=== PATIENT | male | born 1990 | race Caucasian/White ===

== ENCOUNTER 2016-10-08 16:01 | Emergency (ER) | payer OTHER ==
[~2016-10-08] VITALS: Wt 190.0 kg
[2016-10-08] MEDS ORDERED: KETOROLAC 30 MG INJ IM STA (18:22)
[2016-10-08] MEDS ORDERED: CEPH-443 PO (18:25)
[2016-10-08] MEDS ORDERED: BACTDS PO (18:25)
[2016-10-08] MEDS ORDERED: IBUP-1542 PO (18:25)
--- NOTE | 2016-10-08 18:29 | ERD ---
ER Documentation Chief Complaint Date/Time DATE: 10/08/16 TIME: 18:27 Chief Complaint LEFT FOOT PAIN AND MILD SWELLING WITH NO TRAUMA. NO DEFORMITY NOTED HPI 26-year-old man presents with left foot pain and recent swelling mostly to the dorsal aspect of the left foot. Patient denies history of diabetes although does wear tight ill fitting shoes and has morbid obesity. He denies any direct injury or trauma to the foot or ankle, no difficulty ambulating, no fevers or chills, no chest pain or shortness of breath. ROS All systems reviewed and are negative except as per history of present illness. Medications Home Meds Active Scripts Ibuprofen* (Ibuprofen*) 600 Mg Tablet, 600 MG PO Q8 for PAIN AND/OR INFLAMMATION , #30 TAB Prov:SINGH LEE MD 10/08/16 Sulfamethoxazole-Trimethoprim* (Bactrim* DS) 800-160 Mg Tab, 1 TAB PO BID for 7 Days, TAB Prov:SINGH LEE MD 10/08/16 Cephalexin* (Keflex*) 500 Mg Capsule, 500 MG PO QID for 7 Days, CAP Prov:SINGH LEE MD 10/08/16 Allergies Allergies: Coded Allergies: No Known Allergy (Unverified , 10/08/16) PMhx/Soc Obesity Medical and Surgical Hx: pt denies Medical Hx, pt denies Surgical Hx Physical Exam Vitals Vital Signs Date Time Temp Pulse Resp B/P Pulse Ox O2 Delivery O2 Flow Rate FiO2 10/08/16 16:10 98.0 81 21 140/91 97 Physical Exam GENERAL: Well-developed, well-nourished, well-hydrated, in no apparent distress , looks nontoxic in appearance HEENT: Moist mucous membranes, pink conjunctiva, no cervical spine tenderness or step-off deformities, no goiter, no jaundice or icterus, extraocular movements intact without pain. No submandibular induration, and no pharyngeal erythema NEURO: Alert and oriented 3, cranial nerves II through XII intact bilaterally, pupils equal round reactive to light, no focal deficits or facial asymmetry, sensation intact distally Strength 5/5 in upper and lower extremities bilaterally CARDIAC: Regular rate and rhythm, no murmurs rubs or gallops LUNGS: Clear bilaterally no wheezing crackles or stridor ABDOMEN: Soft nontender, no guarding, no rigidity, no rebound, no psoas sign no obturator sign. Normoactive bowel sounds SKIN: There is a superficial pressure ulcer and surrounding skin erythema to the plantar medial aspect of the left big toe, no purulent discharge noted EXTREMITIES: No clubbing cyanosis or edema, calves are bilaterally symmetrical, no Homans sign, no popliteal cord sign. Distal pulses equal and bilateral PSYCH: Normal affect without agitation or irritability Results 24 hrs Current Medications Medications (Trade) Dose Ordered Sig/Doe Route PRN Reason Start Time Stop Time Status Last Admin Dose Admin Ketorolac Tromethamine (Toradol) 30 mg ONCE STAT IM 10/08/16 18:22 10/08/16 18:23 DC 10/08/16 18:34 Procedures/MDM Patient does have a left big toe pressure ulcer secondary to his poorly fitting shoes and obesity. I suspect early cellulitis of the foot which may be successfully managed with outpatient antibiotics, which I will prescribe. I did tell the patient to return if he has continued symptoms despite antibiotic use. I administered Toradol 30 mg intramuscular injection for pain control. Differential diagnoses considered, included but not limited to foreign body, ingrown toenail, sepsis, stroke, meningitis, encephalitis, pneumonia, appendicitis, cholecystitis, bowel obstruction, pyelonephritis, nephrolithiasis , cystitis, as well as metabolic, hematologic, and electrolyte abnormalities. As well as abscess, cellulitis, fractures, and dislocations. Patient feels much better at this time, and vital signs are normal, symptoms have improved. I did give strict instructions to return to the ED if symptoms continue or worsen, patient will otherwise follow-up with primary care physician. Patient understood instructions and agreed to plan. Departure Diagnosis: Primary Impression: Pressure ulcer Pressure ulcer stage: stage I Qualified Code: L89.91 - Pressure ulcer, stage I Condition: Good Patient Instructions: What Are Pressure Ulcers of the Foot?, Pressure Ulcer SINGH LEE MD Oct 08, 2016 18:29
== END 2016-10-08 18:41 | disposition home or self-care (01) ==
LOC: FTE 16:01
DX: L89.891 Pressure ulcer of other site, stage 1 (principal)
CPT/HCPCS: 96372; J1885

== ENCOUNTER 2017-06-05 15:00 | Inpatient (IN) | payer OTHER ==
[~2017-06-05] VITALS: Ht 190.5 cm; Wt 205.5 kg
[~2017-06-05 15:00] MED LIST: BACTDS PO; CEPH-443 PO; IBUP-1542 PO
[2017-06-05] MEDS ORDERED: SOD CHLORIDE 0.9% 1,000 ML IV STA (16:43)
[2017-06-05] MEDS ORDERED: VANCOMYCIN 1.25 GM in SOD CHLORIDE 0.9% 250 ML IVPB ONE (17:00)
[2017-06-05 17:17] LABS: ABNORMAL IP MESSAGE 1; HEMATOCRIT 43.7 % (42.0-52.0); MEAN CORPUSCULAR HEMOGLOBIN 24.6 pg (29.0-33.0); MEAN CORPUSCULAR VOLUME 76.9 fl (82.0-101.0); MEAN PLATELET VOLUME 13.2 fl (7.4-10.4); PLATELET COUNT 172 10^3/UL (140-415); POSITIVE DIFF @See below; RED BLOOD COUNT 5.68 10^6/ul (4.70-6.10); WHITE BLOOD COUNT 15.6 10^3/ul (4.8-10.8)
--- NOTE | 2017-06-05 17:22 | RADRPT ---
PROCEDURE: Right tibia and fibula series CLINICAL INDICATION: Right leg swelling and pain. TECHNIQUE: AP and lateral views of the right tibia and fibula were obtained. COMPARISON: None FINDINGS: No acute fracture or dislocations are seen. The osseous structures are well mineralized. Diffuse sof t tissue swelling is seen. IMPRESSION: Diffuse soft tissue swelling. RPTAT: HPNM Physician Mary Date Time Electronically viewed and signed by Jarrell Mark Physician on 06/05/2017 17:22 /
[2017-06-05 17:24] LABS: ADD UMIC YES; UR AMORPHOUS CRYSTAL FEW /HPF (NONE SEEN); UR ASCORBIC ACID 40 mg/dL (NEGATIVE); UR BILIRUBIN (Dip) NEGATIVE (NEGATIVE); UR BLOOD (Dip) NEGATIVE (NEGATIVE); UR CLARITY SLIGHTLY CLOUDY (CLEAR); UR COLOR AMBER (YELLOW); UR GLUCOSE (Dip) NEGATIVE (NEGATIVE); UR KETONES (Dip) NEGATIVE (NEGATIVE); UR LEUKOCYTE ESTERASE (Dip) TRACE Leu/ul (NEGATIVE); UR MUCUS MODERATE /HPF (NONE SEEN); UR NITRITE (Dip) NEGATIVE (NEGATIVE); UR RBC 0 /HPF (0-5); UR SPECIFIC GRAVITY (Dip) 1.025 (1.003-1.030); UR SQUAMOUS EPITHELIAL CELL FEW /HPF (FEW); UR TOTAL PROTEIN (Dip) 1+ mg/dl (NEGATIVE); UR UROBILINOGEN (Dip) 2+ mg/dL (NEGATIVE)
[2017-06-05 17:32] LABS: ALBUMIN 4.4 g/dl (3.3-4.9); ALBUMIN/GLOBULIN RATIO 1.1; BILIRUBIN,INDIRECT 1.7 mg/dl (0-1.1); BILIRUBIN,TOTAL 1.7 mg/dl (0.2-1.3); CALCIUM 8.9 mg/dl (8.4-10.2); CREATININE 0.92 mg/dl (0.61-1.24); TOTAL PROTEIN 8.4 g/dl (6.1-8.1)
--- NOTE | 2017-06-05 17:32 | RADRPT ---
PROCEDURE: US right lower extremity veins. CLINICAL INDICATION: Right leg pain and swelling. TECHNIQUE: Multiple longitudinal and transverse images of the right lower extremity veins were obt ained with choi scale and color Doppler imaging. The common femoral vein, femoral vein, and poplitea l vein were evaluated. 2D grayscale measurements with compression sonography, pulsed Doppler, color Doppler, and pulsed Doppler with augmentation. COMPARISON: No prior studies are available for comparison. FINDINGS: The right common femoral, femoral and popliteal veins are normally compressible throughout. Color f low demonstrates normal filling of the vessels. Normal waveforms are visualized and there is normal response to augmentation. IMPRESSION: 1. No evidence of deep vein thrombosis involving the right lower extremity. RPTAT: QQ .Renato Nicole MD, MD Date Time Electronically viewed and signed by .Renato Nicole MD, on 06/05/2017 17:31 .R/
--- NOTE | 2017-06-05 17:57 | ERA ---
ER Documentation Chief Complaint Date/Time DATE: 06/05/17 TIME: 17:57 Chief Complaint bite to rle with rash and itchiness HPI 26y/o male, h/o lower extremity venous stasis, presents to the ED c/o a 3 day h/ o increasing redness, pain and swelling to right lower leg. Symptoms began after scratching a possible bug bite. No chest pain, palpitations or shortness of breath. Subjective fevers. No chills. ROS All systems reviewed and are negative except as per history of present illness. Medications Home Meds Active Scripts Ibuprofen* (Ibuprofen*) 400 Mg Tablet, 400 MG PO Q6H Y for PAIN, #40 TAB Prov:JEREMY MONROY MD 06/09/17 Sulfamethoxazole/Trimethoprim* (Bactrim Ds* Tablet) 1 Each Tablet, 1 TAB PO BID for Celluliits , #16 TAB Prov:JEREMY MONROY MD 06/09/17 Discontinued Scripts Ibuprofen* (Ibuprofen*) 600 Mg Tablet, 600 MG PO Q8 for PAIN AND/OR INFLAMMATION , #30 TAB Prov:SINGH LEE MD 10/08/16 Sulfamethoxazole-Trimethoprim* (Bactrim* DS) 800-160 Mg Tab, 1 TAB PO BID for 7 Days, TAB Prov:SINGH LEE MD 10/08/16 Cephalexin* (Keflex*) 500 Mg Capsule, 500 MG PO QID for 7 Days, CAP Prov:SINGH LEE MD 10/08/16 Allergies Allergies: Coded Allergies: No Known Allergy (Unverified , 06/05/17) PMhx/Soc Reviwed in chart. As per HPI. Medical and Surgical Hx: pt denies Medical Hx History of Surgery: Yes (gall bladder surgery ) Anesthesia Reaction: No Hx Neurological Disorder: No Hx Respiratory Disorders: No Hx Cardiac Disorders: No Hx Psychiatric Problems: No Hx Miscellaneous Medical Probl: No Hx Alcohol Use: No Hx Substance Use: No Hx Tobacco Use: No Smoking Status: Never smoker Physical Exam Vitals Vital Signs Date Time Temp Pulse Resp B/P Pulse Ox O2 Delivery O2 Flow Rate FiO2 06/05/17 18:50 99.6 91 20 138/79 99 Room Air 06/05/17 15:24 100.2 118 20 175/95 98 Physical Exam Const: Alert, moderate distress Head: Atraumatic Eyes: Normal Conjunctiva ENT: Normal External Ears, Nose and Mouth. Neck: Full range of motion. Nontender. Resp: Clear to auscultation bilaterally Cardio: Regular rate and rhythm, no murmurs Abd: Soft, non tender, non distended. Normal bowel sounds. Obese. Skin: No petechiae or rashes Back: No midline or flank tenderness Ext: Right LE: Diffuse swelling, erythema, calor and induration from above the ankle to below the knee. Mild lymphangitic streaking. No crepitus. No inguinal lymphadenopathy or tenderness. Neur: Awake and alert Psych: Normal Mood and Affect Result Diagram: 06/08/179 06/08/17438 Results 24 hrs Laboratory Tests Test 06/05/17 16:50 White Blood Count 15.610^3/ul Red Blood Count 5.6810^6/ul Hemoglobin 14.0g/dl Hematocrit 43.7% Mean Corpuscular Volume 76.9fl Mean Corpuscular Hemoglobin 24.6pg Mean Corpuscular Hemoglobin Concent 32.0g/dl Red Cell Distribution Width 16.0% Platelet Count 00491^3/UL Mean Platelet Volume 13.2fl Nucleated Red Blood Cells % 0.0/100WBC Urine Color MARY Urine Clarity SLIGHTLY CLOUDY Urine pH 6.0 Urine Specific [place] 1.025 Urine Ketones NEGATIVEmg/dL Urine Nitrite NEGATIVEmg/dL Urine Bilirubin NEGATIVEmg/dL Urine Urobilinogen 2+mg/dL Urine Leukocyte Esterase TRACELeu/ul Urine Microscopic RBC 0/HPF Urine Microscopic WBC 5/HPF Urine Squamous Epithelial Cells FEW/HPF Urine Amorphous Crystals FEW/HPF Urine Mucus MODERATE/HPF Urine Hemoglobin NEGATIVEmg/dL Urine Glucose NEGATIVEmg/dL Urine Total Protein 1+mg/dl Sodium Level 141mmol/L Potassium Level 4.0mmol/L Chloride Level 102mmol/L Carbon Dioxide Level 30mmol/L Anion Gap 13 Blood Urea Nitrogen 10mg/dl Creatinine 0.92mg/dl Glucose Level 97mg/dl Lactic Acid Level 1.3mmol/L Calcium Level 8.9mg/dl Total Bilirubin 1.7mg/dl Direct Bilirubin 0.00mg/dl Indirect Bilirubin 1.7mg/dl Aspartate Amino Transf (AST/SGOT) 46IU/L Alanine Aminotransferase (ALT/SGPT) 99IU/L Alkaline Phosphatase 94IU/L Total Protein 8.4g/dl Albumin 4.4g/dl Globulin 4.00g/dl Albumin/Globulin Ratio 1.10 Lipase 53U/L Current Medications Medications (Trade) Dose Ordered Sig/Doe Route PRN Reason Start Time Stop Time Status Last Admin Dose Admin Vancomycin HCl 1.25 gm/Sodium Chloride 250 ml @ 83.333 mls/ hr ONCE ONCE IVPB 06/05/17 17:00 06/05/17 19:59 DC 06/05/17 17:31 Sodium Chloride (NS) 1,000 ml @ 1,000 mls/hr Q1H STAT IV 06/05/17 16:43 06/05/17 17:42 DC 06/05/17 17:00 PROCEDURE: Right tibia and fibula series CLINICAL INDICATION: Right leg swelling and pain. TECHNIQUE: AP and lateral views of the right tibia and fibula were obtained. COMPARISON: None FINDINGS: No acute fracture or dislocations are seen. The osseous structures are well mineralized. Diffuse soft tissue swelling is seen. IMPRESSION: Diffuse soft tissue swelling. RPTAT: HPNM Physician Mary Date Time Electronically viewed and signed by Physician Mary on 06/05/2017 17 :22 / PROCEDURE: US right lower extremity veins. CLINICAL INDICATION: Right leg pain and swelling. TECHNIQUE: Multiple longitudinal and transverse images of the right lower extremity veins were obtained with choi scale and color Doppler imaging. The common femoral vein, femoral vein, and popliteal vein were evaluated. 2D grayscale measurements with compression sonography, pulsed Doppler, color Doppler, and pulsed Doppler with augmentation. COMPARISON: No prior studies are available for comparison. FINDINGS: The right common femoral, femoral and popliteal veins are normally compressible throughout. Color flow demonstrates normal filling of the vessels. Normal waveforms are visualized and there is normal response to augmentation. IMPRESSION: 1. No evidence of deep vein thrombosis involving the right lower extremity. RPTAT: QQ .Renato Nicole MD, MD Date Time Electronically viewed and signed by .Renato Nicole MD, MD on 06/05/2017 17:31 .R/ Procedures/MDM DOCUMENTS REVIEWED: ED nurse, prior records. MEDICAL DECISION MAKINy/o male, h/o lower extremity venous stasis, ambulatory to the ED c/o a 3 day h/o increasing redness, pain and swelling to right lower leg. Cellulitis left lower extremity. Ascending lymphangitis but no necrotizing fasciitis. Ultrasound for DVT negative. Fever and leukocytosis consistent with SIRS. IV Vancomycin initiated. Admit to med/surg. Counseled patient and family regarding diagnosis, diagnostic results and plan for admission. CALLS/CONSULTS: Time 18:10, Dr. Bruce, Recommends admission to med/surg. PATIENT CARE TRANSITIONED: Time: 19:15, Dr. Bruce. Departure Diagnosis: Primary Impression: Cellulitis of right lower extremity Additional Impression: Ascending lymphangitis Condition: Serious MARGOTH FITZGERALD MD Jun 05, 2017 17:57
[2017-06-05] MEDS ORDERED: VANCOMYCIN IV PER PHARMACY XX SCH (20:30)
[2017-06-05] MEDS ORDERED: ONDANSETRON 4 MG INJ IV PRN (20:30)
[2017-06-05] MEDS ORDERED: NACL 0.9% 3 ML SYG IV SCH (20:30)
[2017-06-05] MEDS ORDERED: ACETAMINOPHEN 325 MG TAB PO PRN (20:30)
[2017-06-05] MEDS: HYDROCODONE/APAP (5/325) TAB PO PRN (21:57)
[2017-06-05] MEDS: FAMOTIDINE 20 MG TAB PO SCH (22:00)
[2017-06-05 22:05] VITALS: PULSE 91; TEMP 98.9
[2017-06-05] MEDS ORDERED: VANCOMYCIN 2 GM in SOD CHLORIDE 0.9% 500 ML IVPB SCH (23:30)
[2017-06-05 23:50] VITALS: BP 122/68; RESP 20
[2017-06-06 00:07] VITALS: Ht 190.5 cm; Wt 205.5 kg
[2017-06-06 02:15] VITALS: BP 129/69; RESP 20
[2017-06-06 05:19] LABS: ABNORMAL IP MESSAGE 1; BASOPHIL # 0.1 10^3/ul (0.0-0.1); BASOPHILS % 0.6 % (0.0-2.0); EOSINOPHILS # 0.3 10^3/ul (0.0-0.5); EOSINOPHILS % 2.3 % (0.0-7.0); HEMATOCRIT 38.2 % (42.0-52.0); HEMOGLOBIN 11.8 g/dl (14.0-18.0); LYMPHOCYTES # 2.8 10^3/ul (0.8-2.9); LYMPHOCYTES % 23.4 % (15.0-51.0); MEAN CORPUSCULAR HEMOGLOBIN 23.7 pg (29.0-33.0); MEAN CORPUSCULAR HGB CONC 30.9 g/dl (32.0-37.0); MEAN CORPUSCULAR VOLUME 76.7 fl (82.0-101.0); MEAN PLATELET VOLUME 13.2 fl (7.4-10.4); MONOCYTES % 16.3 % (0.0-11.0); NEUTROPHIL # 6.9 10^3/ul (1.6-7.5); NEUTROPHILS % 57.1 % (39.0-77.0); PLATELET COUNT 137 10^3/UL (140-415); POSITIVE DIFF @See below; RED BLOOD COUNT 4.98 10^6/ul (4.70-6.10); RED CELL DISTRIBUTION WIDTH 16.6 % (11.5-14.5); WHITE BLOOD COUNT 12.2 10^3/ul (4.8-10.8)
--- NOTE | 2017-06-06 05:45 | HP ---
Date/Time of Note Date/Time of Note DATE: 06/06/17 TIME: 05:38 Assessment/Plan VTE Prophylaxis VTE Prophylaxis Intervention: LMWH Lines/Catheters IV [facility] Saline Lock Urinary Cath still in place: No Assessment/Plan Chief Complaint/Hosp Course This is a 18 year male being admitted to the [facility] floor for: #1 right lower extremity cellulitis: Patient does have a abrasion noted on the posterior calf which he states was from itching this likely could be the entry point for his cellulitis. Patient also is a morbidly obese male which also is a risk factor in itself. At the current time he was started on vancomycin in the ED will continue vancomycin. Will provide [place] for pain control. #2 morbid obesity: We will check a hemoglobin A1c, TSH and lipid panel, will encourage weight loss. #4 DVT and GI prophylaxis: Lovenox, acid gabriel Further treatment strategy as per the clinical course Problems: HPI/ROS Admit Date/Time Admit Date/Time Jun 05, 2017 at 20:18 Hx of Present Illness Chief complaint: Right leg pain, rash This is a 26-year-old male coming into the ED complaining of right lower extremity calf pain and rash. Patient states he started noticing a rash of the back side of his leg below the level of the knee on Saturday. He states that it was painful and warm to touch. He denies any fevers. Denies any recent travel. He does state that he was scratching the area because it was itchy. He was not taking any medications for this Allergies: NKDA Medications: None ROS Const: Negative for fever, chills, weight gain or weight loss, fatigue, or diaphoresis Eyes : No pain discharge or redness or change in visual acuity ENT: No pain, sore throat, congestion, congestion, dysphagia or discharge Respiratory: No shortness of breath, cough, sputum, wheezing, or pleuritic pain Cardiovascular: No chest pain, palpitation, PND, or edema GI : no change in appetite, abdominal pain, nausea, vomiting, diarrhea, constipation, or change in the color his stool Genitourinary: No dysuria, hematuria, flank pain , discharge or CVA tenderness Musculoskeletal: As per HPI Skin: As per HPI Neuro: No headache, dizziness, syncope, seizure, focal weakness Endocrine: No polyuria, polydipsia, temperature intolerance Psych: No hallucination, depression, anxiety or suicidal ideation PMH/Family/Social Past Medical History Medical History: no pertinent history Past Surgical History Gallstone removal, deviated septum surgery Family History Significant Family History: no pertinent family hx Social History Alcohol Use: occasionally Smoking Status: Never smoker Drug Use: none Exam/Review of Systems Vital Signs Vitals Vital Signs Date Time Temp Pulse Resp B/P Pulse Ox O2 Delivery O2 Flow Rate FiO2 06/06/17 02:15 99.0 101 20 129/69 93 06/05/17 22:05 Room Air Exam Exam General: This is a morbidly obese male sitting in bed in mild distress from pain HEENT: Atraumatic, normocephalic. The pupils are equal, round and reactive. Extraocular motor are intact Neck: Supple with full range of motion. No rigidity or meningismus Chest: Nontender Lungs: Clear to auscultation bilaterally no crackles rales or wheezing Heart: Normal S1-S2, Regular rhythm and rate. No murmur, S3, or S4 Abdomen: Soft , nontender, nondistended , bowel sounds are present. No guarding no rebound tenderness , No masses or organomegaly. No costovertebral temporal angle mass Extremities: Negative Homans sign, tenderness to palpation along the posterior right lower extremity, warmth and erythema noted Neurologic: Normal mental status, speech normal, cranial nerves II through XII are intact, motor and sensory are intact, no focal weakness Skin: Right lower extremity: At the area of the calf down to the Achilles redness and warmth noted, area of abrasion at the posterior calf likely from scratching Additional Comments PROCEDURE: Right tibia and fibula series CLINICAL INDICATION: Right leg swelling and pain. TECHNIQUE: AP and lateral views of the right tibia and fibula were obtained. COMPARISON: None FINDINGS: No acute fracture or dislocations are seen. The osseous structures are well mineralized. Diffuse soft tissue swelling is seen. IMPRESSION: Diffuse soft tissue swelling. RPTAT: HPNM Physician Mary Date Time Electronically viewed and signed by Jarrell Mark Physician on 06/05/2017 17 :22 / CC: DOMINIC SIN PA-C PROCEDURE: US right lower extremity veins. CLINICAL INDICATION: Right leg pain and swelling. TECHNIQUE: Multiple longitudinal and transverse images of the right lower extremity veins were obtained with choi scale and color Doppler imaging. The common femoral vein, femoral vein, and popliteal vein were evaluated. 2D grayscale measurements with compression sonography, pulsed Doppler, color Doppler, and pulsed Doppler with augmentation. COMPARISON: No prior studies are available for comparison. FINDINGS: The right common femoral, femoral and popliteal veins are normally compressible throughout. Color flow demonstrates normal filling of the vessels. Normal waveforms are visualized and there is normal response to augmentation. IMPRESSION: 1. No evidence of deep vein thrombosis involving the right lower extremity. RPTAT: QQ .Renato Nicole MD, MD Date Time Electronically viewed and signed by .Renato Nicole MD, on 06/05/2017 17:31 .R/ CC: DOMINIC SIN PA-C Labs Result Diagram: 06/06/17 0421 06/05/17 1650 Medications Medications Current Medications Ondansetron HCl (Zofran Inj) 4 mg Q6H PRN IV NAUSEA AND/OR VOMITING; Start 06/05/17 at 20:30 Acetaminophen (Tylenol Tab) 650 mg Q6H PRN PO PAIN LEVEL 1-3 OR FEVER; Start 06/05/17 at 20:30 Acetaminophen/ Hydrocodone Bitart ([place] (5/325)) 2 tab Q6H PRN PO SEVERE PAIN LEVEL 7-10 Last administered on 06/05/17 21:57; Admin Dose 2 TAB; Start at 20:30 Famotidine (Pepcid) 20 mg Q12 PO Last administered on 06/05/17 22:00; Admin Dose 20 MG; Start 06/05/17 at 21:00 Enoxaparin Sodium 40 mg 40 mg DAILY SC ; Start 06/06/17 at 09:00 Vancomycin HCl/ Sodium Chloride (Vancocin/NS) 500 ml @ 125 mls/hr Q8H IVPB ; Start 06/06/17 at 10:00 SUSIE BUSTILLO Jun 06, 2017 05:45
[2017-06-06 05:52] LABS: ALBUMIN 3.6 g/dl (3.3-4.9); ALBUMIN/GLOBULIN RATIO 0.97; BILIRUBIN,INDIRECT 1.5 mg/dl (0-1.1); BILIRUBIN,TOTAL 1.5 mg/dl (0.2-1.3); CHOL/HDL RATIO 4.3 RATIO; CREATININE 0.81 mg/dl (0.61-1.24); POTASSIUM 3.4 mmol/L (3.5-5.1); TOTAL PROTEIN 7.3 g/dl (6.1-8.1)
[2017-06-06 06:59] LABS: THYROID STIMULATING HORMONE 3.14 MIU/L (0.465-4.680)
[2017-06-06 07:31] VITALS: BP 121/69; RESP 19
[2017-06-06] MEDS: FAMOTIDINE 20 MG TAB PO SCH ×2 (08:42→21:04)
[2017-06-06] MEDS: ENOXAPARIN 40 MG/0.4 ML SYG SC SCH (08:54)
[2017-06-06] MEDS: VANCOMYCIN 2 GM in SOD CHLORIDE 0.9% 500 ML IVPB SCH ×2 (10:12→17:25)
--- NOTE | 2017-06-06 10:53 | PN ---
Date/Time of Note Date/Time of Note DATE: 06/06/17 TIME: 10:53 Assessment/Plan VTE Prophylaxis VTE Prophylaxis Intervention: LMWH Lines/Catheters IV [facility]from [facility] Saline Lock Urinary Cath still in place: No Assessment/Plan Chief Complaint/Hosp Course This is a 26-year-old morbidly obese male who presented to the emergency room for evaluation of right lower extremity swelling, pain, redness which started off with a rash which patient thinks possibly from bug bitex 4 days. 1. Right lower extremity cellulitis. Negative for DVT. -Continue IV antibiotics, elevation of affected extremity. ID consult will be also requested. -Follow up with blood cultures. -Also obtain a soft tissue ultrasound to rule out any possible abscess. 2. Systemic inflammatory response syndrome secondary to #1. -Treatment as above. 3. Mild thrombocytopenia, stable. -Monitor 4. Anemia, likely dilutional vs others. -H&H stable. Will monitor. -Add iron panel and treat accordingly. 5. Hyperbilirubinemia/transaminase elevation. This could be likely fatty infiltration. Patient asymptomatic. -Obtain liver ultrasound. 6. Mild hypokalemia. -Replete and monitor. Obtain magnesium level. DVT and GI prophylaxis: Lovenox, acid gabriel Plan: Continue current medical management. Follow-up with ID recommendations and follow-up cultures. Patient was seen in collaboration with . Problems: Subjective 24 Hr Interval Summary Free Text/Dictation Patient with low-grade fevers overnight. Continues to have pain, warmth, swelling, tenderness and redness on right lower extremities. Exam/Review of Systems Vital Signs Vitals Vital Signs Date Time Temp Pulse Resp B/P Pulse Ox O2 Delivery O2 Flow Rate FiO2 06/06/17 07:31 98.0 97 19 121/69 98 06/05/17 22:05 Room Air Intake and Output 06/05/17 06/05/17 06/06/17 15:00 23:00 07:00 Intake Total 280 ml Balance 280 ml Exam General: Well developed,adequately built, not in any acute distress . HEENT: Normocephalic, Atraumatic, No laceration or hematoma; Eyes: PEERL, Conjunctiva clear, Anicteric sclera Neck: Supple without any lymphadenopathy, nontender, no JVD, no carotid bruits, trachea midline, no thyromegaly Cardiac: S1, S2 auscultated, regular rhythm and rate, no mumurs or gallop Pulmonary: Normal respiratory effort. Chest clear to auscultation bilaterally, no adventitious breath sounds GI: Abdomen normal to inspection. Soft, non tender, non- distended, no masses, no rebound tenderness or guarding. Bowel sounds active on all four quadrants Genitourinary: Deferred Extremities: RLE with edema, redness, warm and induration. , Area of abrasion at the posterior calf likely from scratching. Pulses diminished on Rt DP/PT. Full ROM on all four extremities. No focal weakness appreciated. Neurologic: Alert to person, place, time, and situation. Affect appropriate, intact sensation. Skin: Clean,dry, and intact. No ecchymosis, no rashes, or lesions Results Result Diagram: 06/06/1742006/06/17420 Results 24 hrs Laboratory Tests Test 06/05/17 16:50 06/06/17 04:21 White Blood Count 15.6 H 12.2 #H Red Blood Count 5.68 4.98 Hemoglobin 14.0 11.8 L Hematocrit 43.7 38.2 L Mean Corpuscular Volume 76.9 L 76.7 L Mean Corpuscular Hemoglobin 24.6 L 23.7 L Mean Corpuscular Hemoglobin Concent 32.0 30.9 L Red Cell Distribution Width 16.0 H 16.6 H Platelet Count 172 137 #L Mean Platelet Volume 13.2 H 13.2 H Nucleated Red Blood Cells % 0.0 0.0 Urine Color MARY Urine Clarity SLIGHTLY CLOUDY A Urine pH 6.0 Urine Specific [place] 1.025 Urine Ketones NEGATIVE Urine Nitrite NEGATIVE Urine Bilirubin NEGATIVE Urine Urobilinogen 2+ H Urine Leukocyte Esterase TRACE A Urine Microscopic RBC 0 Urine Microscopic WBC 5 Urine Squamous Epithelial Cells FEW Urine Amorphous Crystals FEW A Urine Mucus MODERATE Urine Hemoglobin NEGATIVE Urine Glucose NEGATIVE Urine Total Protein 1+ H Sodium Level 141 140 Potassium Level 4.0 3.4 L Chloride Level 102 104 Carbon Dioxide Level 30 28 Anion Gap 13 11 Blood Urea Nitrogen 10 10 Creatinine 0.92 0.81 Glucose Level 97 109 Lactic Acid Level 1.3 Calcium Level 8.9 8.0 L Total Bilirubin 1.7 H 1.5 H Direct Bilirubin 0.00 0.00 Indirect Bilirubin 1.7 H 1.5 H Aspartate Amino Transf (AST/SGOT) 46 37 Alanine Aminotransferase (ALT/SGPT) 99 H 87 H Alkaline Phosphatase 94 80 Total Protein 8.4 H 7.3 # Albumin 4.4 3.6 Globulin 4.00 H 3.70 H Albumin/Globulin Ratio 1.10 0.97 Lipase 53 Neutrophils % 57.1 Lymphocytes % 23.4 Monocytes % 16.3 H Eosinophils % 2.3 Basophils % 0.6 Neutrophils # 6.9 Lymphocytes # 2.8 Monocytes # 2.0 H Eosinophils # 0.3 Basophils # 0.1 Nucleated Red Blood Cells # 0.0 Hemoglobin A1c 5.1 Magnesium Level 2.0 Triglycerides Level 129 Cholesterol Level 121 LDL Cholesterol, Calculated 67 HDL Cholesterol 28 L Cholesterol/HDL Ratio 4.3 Thyroid Stimulating Hormone (TSH) 3.140 Medications Medications Current Medications Ondansetron HCl (Zofran Inj) 4 mg Q6H PRN IV NAUSEA AND/OR VOMITING; Start 06/05/17 at 20:30 Acetaminophen (Tylenol Tab) 650 mg Q6H PRN PO PAIN LEVEL 1-3 OR FEVER Last administered on 06/06/17 08:42; Admin Dose 650 MG; Start 06/05/17 at 20:30 Acetaminophen/ Hydrocodone Bitart ([place] (5/325)) 2 tab Q6H PRN PO SEVERE PAIN LEVEL 7-10 Last administered on 06/05/17 21:57; Admin Dose 2 TAB; Start at 20:30 Famotidine (Pepcid) 20 mg Q12 PO Last administered on 06/06/17 08:42; Admin Dose 20 MG; Start 06/05/17 at 21:00 Enoxaparin Sodium 40 mg 40 mg DAILY SC Last administered on 06/06/17 08:54; Admin Dose 40 MG; Start 06/06/17 at 09:00 Vancomycin HCl/ Sodium Chloride (Vancocin/NS) 500 ml @ 125 mls/hr Q8H IVPB Last administered on 06/06/17 10:12; Admin Dose 125 MLS/HR; Start 06/06/17 at 10:00 KACI YANG NP Jun 06, 2017 10:53
--- NOTE | 2017-06-06 19:11 | CONS ---
DATE OF ADMISSION: 06/05/2017 DATE OF CONSULTATION: 06/06/2017 TYPE OF CONSULTATION: Infectious Disease. REASON FOR CONSULTATION: Antibiotic management. HISTORY OF PRESENT ILLNESS: Sourav Julian is a 26-year-old male who is being admitted for right lower ex tremity cellulitis. The patient complains of right lower extremity calf pain and rash. He states h e has been noticing a rash on the back of his leg below the level of the knee on Saturday, which is 4 days ago, was warm to the touch. Denies any fever, denies any recent travel and he was scratching t he area because it was pruritic. His other problems include morbid obesity on admission. PAST SURGICAL HISTORY: Status post gallstone removal, also deviated septum surgery. SOCIAL HISTORY: Does not smoke, drink or abuse drugs. ALLERGIES: NONE TO PENICILLIN, SULFA OR FOODS. MEDICATIONS: Per chart. REVIEW OF SYSTEMS: As per HPI. PHYSICAL EXAMINATION: GENERAL: The patient is a well-developed, well-nourished but morbidly obese male who is alert, resp onsive, in no acute distress. VITAL SIGNS: Stable. He is afebrile. SKIN: Without generalized rash. HEENT: Within normal limits. NECK: Supple. LYMPH NODES: None palpable. CHEST: Decreased breath sounds at the bases. HEART: Without murmur or gallop. ABDOMEN: Soft, nontender, without organosplenomegaly or masses. EXTREMITIES: Without cyanosis, clubbing, or edema. RECTAL AND GENITAL: Deferred. NEUROLOGIC: No focal neurological abnormalities. The right lower extremity is red from the Karla s tendon down and there is an area of an abrasion at the posterior calf. He had an x-ray done which showed diffuse soft tissue swelling, but no acute fractures or dislocatio ns. He has diffuse soft tissue swelling. The patient was started on vancomycin. We are treating ce llulitis at this point. I will dictate my findings to the hospitalist as mentioned. Dictated By: COMFORT TONEY MD, JD/MONISHA Conf#: [id number] DID#: [id number]
[2017-06-06 20:23] VITALS: BP 132/62; RESP 18
[2017-06-07] MEDS: HYDROCODONE/APAP (5/325) TAB PO PRN (01:18)
[2017-06-07] MEDS: VANCOMYCIN 2 GM in SOD CHLORIDE 0.9% 500 ML IVPB SCH ×3 (02:34→17:48)
[2017-06-07 02:42] VITALS: BP 130/60; RESP 18
[2017-06-07 05:09] LABS: HAAIG REFLEX REFLEX FILED
[2017-06-07 05:11] LABS: ABNORMAL IP MESSAGE 1; BASOPHIL # 0.1 10^3/ul (0.0-0.1); BASOPHILS % 0.5 % (0.0-2.0); EOSINOPHILS # 0.4 10^3/ul (0.0-0.5); EOSINOPHILS % 3.2 % (0.0-7.0); HEMATOCRIT 38.9 % (42.0-52.0); HEMOGLOBIN 12.3 g/dl (14.0-18.0); LYMPHOCYTES # 2.3 10^3/ul (0.8-2.9); LYMPHOCYTES % 20.6 % (15.0-51.0); MEAN CORPUSCULAR HEMOGLOBIN 24.6 pg (29.0-33.0); MEAN CORPUSCULAR HGB CONC 31.6 g/dl (32.0-37.0); MEAN CORPUSCULAR VOLUME 77.6 fl (82.0-101.0); MONOCYTE # 1.5 10^3/ul (0.3-0.9); MONOCYTES % 13.5 % (0.0-11.0); NEUTROPHIL # 6.8 10^3/ul (1.6-7.5); NEUTROPHILS % 61.9 % (39.0-77.0); PLATELET COUNT 171 10^3/UL (140-415); POSITIVE DIFF @See below; RED BLOOD COUNT 5.01 10^6/ul (4.70-6.10); RED CELL DISTRIBUTION WIDTH 15.9 % (11.5-14.5)
[2017-06-07 05:45] LABS: CALCIUM 8.3 mg/dl (8.4-10.2); CREATININE 0.86 mg/dl (0.61-1.24); POTASSIUM 3.9 mmol/L (3.5-5.1)
[2017-06-07 07:03] LABS: HEPATITIS B CORE ANTIBODY NEGATIVE (NEGATIVE)
[2017-06-07 07:20] VITALS: BP 127/67; RESP 19
--- NOTE | 2017-06-07 07:22 | RADRPT ---
PROCEDURE: US Abdomen. CLINICAL INDICATION: Elevated liver enzymes, right upper quadrant pain TECHNIQUE: Multiple real-time images were acquired of the patient's abdomen and retroperitoneum ut ilizing a high resolution transducer. COMPARISON: None FINDINGS: Visualized portions of the pancreatic head and proximal body are unremarkable. The liver is diffus oscar increased in echogenicity. This most likely represents fatty infiltration of the liver. The gallbladder surgically absent. The common bile duct measures 4.4 mm in maximal dimension. No free fluid is identified. The right kidney is unremarkable without evidence of hydronephrosis or mass. The right kidney measur es 13.9 cm in length. The abdominal aorta is not visualized secondary to overlying bowel gas. IMPRESSION: 1. Study somewhat limited by the patient's large body habitus 2. The liver is enlarged measuring 23.4 cm in length and diffusely increased in echogenicity. This most likely represents fatty infiltration of the liver. 3. The gallbladder is surgically absent. RPTAT:AAJJ Physician Rachel Date Time Electronically viewed and signed by Physician Rachel on 06/07/2017 07:22 /
--- NOTE | 2017-06-07 08:39 | RADRPT ---
PROCEDURE: Ultrasound of the soft tissues of the right lower leg. CLINICAL INDICATION: Palpable lesion in the right lower leg. TECHNIQUE: High-resolution sonography of the right lower leg at the site of the palpable lesion wa s performed in the axial and sagittal planes. COMPARISON: None FINDINGS: There is no fluid collection or mass. There is diffuse subcutaneous adipose tissue edema. There is no abnormality at the site of the palpable lesion. IMPRESSION: 1. Diffuse subcutaneous adipose tissue edema at the site of the palpable lesion in the right lower leg. No abscess or other abnormality at the site of the palpable lesion. 2. Any further management regarding the palpable lesion should be based on clinical grounds. RPTAT: QQ .Renato Nicole MD, MD Date Time Electronically viewed and signed by .Renato Nicole MD, on 06/07/2017 08:38 .R/
[2017-06-07] MEDS: FAMOTIDINE 20 MG TAB PO SCH ×2 (09:03→20:19)
[2017-06-07] MEDS: ENOXAPARIN 40 MG/0.4 ML SYG SC SCH (09:05)
--- NOTE | 2017-06-07 15:23 | PN ---
Date/Time of Note Date/Time of Note DATE: 06/07/17 TIME: 15:20 Assessment/Plan VTE Prophylaxis VTE Prophylaxis Intervention: LMWH Lines/Catheters IV [facility]from [facility] Saline Lock Urinary Cath still in place: No Assessment/Plan Assessment/Plan 1. Right lower extremity cellulitis. US Negative for DVT. -Continue IV antibiotics, elevation of affected extremity. pt still has significant right LE cellutlitis, WBC improving -Follow up with blood cultures. 2. Systemic inflammatory response syndrome secondary to #1. -Treatment as above. 3. Mild thrombocytopenia, stable. -Monitor 4. Anemia, likely dilutional vs others. -H&H stable. Will monitor. -Add iron panel and treat accordingly. 5. Hyperbilirubinemia/transaminase elevation. This could be likely fatty infiltration. Patient asymptomatic. -Obtain liver ultrasound. 6. Mild hypokalemia. -Replete and monitor. Obtain magnesium level. DVT and GI prophylaxis: Lovenox, acid gabriel Subjective 24 Hr Interval Summary Free Text/Dictation pt still has signficant right leg pain and swelling, WBC Count high, BP stable , afebrile Exam/Review of Systems Vital Signs Vitals Vital Signs Date Time Temp Pulse Resp B/P Pulse Ox O2 Delivery O2 Flow Rate FiO2 06/07/17 07:20 98.9 93 19 127/67 97 06/05/17 22:05 Room Air Intake and Output 06/06/17 06/06/17 06/07/17 15:00 23:00 07:00 Intake Total 500 ml 1600 ml 500 ml Balance 500 ml 1600 ml 500 ml Exam Constitutional: alert Psych: no complaints Head: normocephalic Eyes: nl conjunctiva ENMT: nl external ears & nose Neck: non-tender, supple Respiratory: clear to auscultation, normal air movement Cardiovascular: nl pulses, regular rate and rhythm Gastrointestinal: non-tender, soft Musculoskeletal: muscle weakness, other (Right leg swelling ), swelling Neurological: SCHEDULING ADMINISTRATOR II-XII intact, nl mental status, nl speech, nl strength Results Result Diagram: 06/07/1742906/07/17 043 Results 24 hrs Laboratory Tests Test 06/07/17 01:13 06/07/17 04:30 Vancomycin Level Trough 10.9 White Blood Count 11.0 H Red Blood Count 5.01 Hemoglobin 12.3 L Hematocrit 38.9 L Mean Corpuscular Volume 77.6 L Mean Corpuscular Hemoglobin 24.6 L Mean Corpuscular Hemoglobin Concent 31.6 L Red Cell Distribution Width 15.9 H Platelet Count 171 # Mean Platelet Volume Neutrophils % 61.9 Lymphocytes % 20.6 Monocytes % 13.5 H Eosinophils % 3.2 Basophils % 0.5 Nucleated Red Blood Cells % 0.0 Neutrophils # 6.8 Lymphocytes # 2.3 Monocytes # 1.5 H Eosinophils # 0.4 Basophils # 0.1 Nucleated Red Blood Cells # 0.0 Sodium Level 140 Potassium Level 3.9 Chloride Level 104 Carbon Dioxide Level 28 Anion Gap 12 Blood Urea Nitrogen 10 Creatinine 0.86 Glucose Level 104 Calcium Level 8.3 L Hepatitis B Surface Antigen NEGATIVE Hepatitis B Core Total Antibody NEGATIVE Hepatitis C Antibody NEGATIVE Medications Medications Current Medications Ondansetron HCl (Zofran Inj) 4 mg Q6H PRN IV NAUSEA AND/OR VOMITING; Start 06/05/17 at 20:30 Acetaminophen (Tylenol Tab) 650 mg Q6H PRN PO PAIN LEVEL 1-3 OR FEVER Last administered on 06/06/17 08:42; Admin Dose 650 MG; Start 06/05/17 at 20:30 Acetaminophen/ Hydrocodone Bitart ([place] (5/325)) 2 tab Q6H PRN PO SEVERE PAIN LEVEL 7-10 Last administered on 06/07/17 01:18; Admin Dose 2 TAB; Start at 20:30 Famotidine (Pepcid) 20 mg Q12 PO Last administered on 06/07/17 09:03; Admin Dose 20 MG; Start 06/05/17 at 21:00 Enoxaparin Sodium 40 mg 40 mg DAILY SC Last administered on 06/07/17 09:05; Admin Dose 40 MG; Start 06/06/17 at 09:00 Vancomycin HCl/ Sodium Chloride (Vancocin/NS) 500 ml @ 125 mls/hr Q8H IVPB Last administered on 06/07/17 09:59; Admin Dose 125 MLS/HR; Start 06/06/17 at 10:00 JEREMY MONROY MD Jun 07, 2017 15:23
--- NOTE | 2017-06-07 18:08 | PN ---
DATE: 06/07/2017 INFECTIOUS DISEASE PROGRESS NOTE SUBJECTIVE: No acute changes overnight per report. The patient is alert, sitting up in a chair, fe els better. Looks comfortable, no fevers. WBC today 11, platelets 171. BUN 10, creatinine 0.86. MICROBIOLOGY: Blood cultures negative. ANTIMICROBIALS: He is on IV vancomycin. PHYSICAL EXAMINATION: GENERAL: Morbidly obese young man who is alert, in no distress. HEENT: Head atraumatic, normocephalic. Sclerae anicteric. Buccal mucosa dry. NECK: Supple. CHEST: Rise symmetrical. Breath sounds clear, diminished to bases. HEART: S1, S2. ABDOMEN: Soft. Bowel tones present. EXTREMITIES: Bilateral lower extremities edema. Right lower extremity with resolving erythema. ASSESSMENT: 1. Systemic inflammatory response syndrome. 2. Right lower extremity cellulitis. 3. Morbid obesity. 4. Anemia and thrombocytopenia. PLAN: The patient remains stable, improving on current antibiotics. Continue present care. Keep l ower extremities elevated. Dictated By: BURKE OTT VENEER DRIER for COMFORT MEDEROS/MONISHA Conf#: [id number] DID#: [id number]
[2017-06-07 21:10] VITALS: BP 116/71; RESP 20
[2017-06-08] MEDS: VANCOMYCIN 2 GM in SOD CHLORIDE 0.9% 500 ML IVPB SCH ×3 (02:09→18:26)
[2017-06-08 02:11] VITALS: BP 137/63; RESP 18
[2017-06-08 05:30] LABS: ABNORMAL IP MESSAGE 1; BASOPHILS % 0.5 % (0.0-2.0); EOSINOPHILS # 0.3 10^3/ul (0.0-0.5); EOSINOPHILS % 3.7 % (0.0-7.0); HEMATOCRIT 38.6 % (42.0-52.0); HEMOGLOBIN 12.1 g/dl (14.0-18.0); LYMPHOCYTES # 1.9 10^3/ul (0.8-2.9); LYMPHOCYTES % 23.3 % (15.0-51.0); MEAN CORPUSCULAR HEMOGLOBIN 24.1 pg (29.0-33.0); MEAN CORPUSCULAR HGB CONC 31.3 g/dl (32.0-37.0); MEAN CORPUSCULAR VOLUME 76.9 fl (82.0-101.0); MEAN PLATELET VOLUME 13.1 fl (7.4-10.4); MONOCYTE # 0.9 10^3/ul (0.3-0.9); MONOCYTES % 11.2 % (0.0-11.0); NEUTROPHIL # 4.9 10^3/ul (1.6-7.5); NEUTROPHILS % 60.9 % (39.0-77.0); PLATELET COUNT 175 10^3/UL (140-415); POSITIVE DIFF @See below; RED BLOOD COUNT 5.02 10^6/ul (4.70-6.10); RED CELL DISTRIBUTION WIDTH 16.2 % (11.5-14.5)
[2017-06-08 05:47] LABS: ALBUMIN 3.8 g/dl (3.3-4.9); BILIRUBIN,INDIRECT 0.7 mg/dl (0-1.1); BILIRUBIN,TOTAL 0.7 mg/dl (0.2-1.3); CALCIUM 8.4 mg/dl (8.4-10.2); CREATININE 0.83 mg/dl (0.61-1.24); POTASSIUM 4.1 mmol/L (3.5-5.1); TOTAL PROTEIN 7.6 g/dl (6.1-8.1)
[2017-06-08 06:02] LABS: INR 1.02; PROTIME 13.4 Sec (12.2-14.2)
[2017-06-08 06:03] LABS: PARTIAL THROMBOPLASTIN TIME 36.3 Sec (25.0-35.0)
[2017-06-08] MEDS: HYDROCODONE/APAP (5/325) TAB PO PRN (06:18)
[2017-06-08] MEDS: FAMOTIDINE 20 MG TAB PO SCH ×2 (08:18→21:09)
[2017-06-08] MEDS: ENOXAPARIN 40 MG/0.4 ML SYG SC SCH (08:23)
[2017-06-08 08:47] VITALS: BP 127/67; RESP 18
--- NOTE | 2017-06-08 13:33 | CONS ---
Date/Time of Note Date/Time of Note DATE: 06/08/17 TIME: 13:32 Assessment/Plan Assessment/Plan Chief Complaint/Hosp Course SUBJECTIVE: No acute changes overnight per report. The patient is awake, looks comfortable, no fevers. MICROBIOLOGY: Blood cultures negative. ANTIMICROBIALS: He is on IV vancomycin. PHYSICAL EXAMINATION: GENERAL: Morbidly obese young man who is alert, in no distress. HEENT: Head atraumatic, normocephalic. Sclerae anicteric. Buccal mucosa dry. NECK: Supple. CHEST: Rise symmetrical. Breath sounds clear, diminished to bases. HEART: S1, S2. ABDOMEN: Soft. Bowel tones present. EXTREMITIES: Bilateral lower extremities edema. Right lower extremity with resolving erythema. ASSESSMENT: 1. Systemic inflammatory response syndrome. 2. Right lower extremity cellulitis. 3. Morbid obesity. 4. Anemia and thrombocytopenia. PLAN: The patient remains stable, RLE calf still with significant swelling and erythema, continue abx, add Rocephin, continue elevation DW staff Problems: Consultation Date/Type/Reason Admit Date/Time Jun 05, 2017 at 20:18 Initial Consult Date Type of Consultation: ID Exam/Review of Systems Vital Signs Vitals Vital Signs Date Time Temp Pulse Resp B/P Pulse Ox O2 Delivery O2 Flow Rate FiO2 06/08/17 08:47 98.7 86 18 127/67 100 06/05/17 22:05 Room Air Intake and Output 06/07/17 06/07/17 06/08/17 14:59 22:59 06:59 Intake Total 500 ml 1600 ml 2100 ml Balance 500 ml 1600 ml 2100 ml Results Result Diagram: 06/08/17 0439 06/08/17 0439 Results 24 hrs Laboratory Tests Test 06/08/17 04:39 White Blood Count 8.0 # Red Blood Count 5.02 Hemoglobin 12.1 L Hematocrit 38.6 L Mean Corpuscular Volume 76.9 L Mean Corpuscular Hemoglobin 24.1 L Mean Corpuscular Hemoglobin Concent 31.3 L Red Cell Distribution Width 16.2 H Platelet Count 175 Mean Platelet Volume 13.1 H Neutrophils % 60.9 Lymphocytes % 23.3 Monocytes % 11.2 H Eosinophils % 3.7 Basophils % 0.5 Nucleated Red Blood Cells % 0.0 Neutrophils # 4.9 Lymphocytes # 1.9 Monocytes # 0.9 Eosinophils # 0.3 Basophils # 0.0 Nucleated Red Blood Cells # 0.0 Prothrombin Time 13.4 Prothrombin Time Ratio 1.0 INR International Normalized Ratio 1.02 Activated Partial Thromboplast Time 36.3 H Sodium Level 140 Potassium Level 4.1 Chloride Level 104 Carbon Dioxide Level 28 Anion Gap 12 Blood Urea Nitrogen 9 Creatinine 0.83 Glucose Level 97 Calcium Level 8.4 Total Bilirubin 0.7 Direct Bilirubin 0.00 Indirect Bilirubin 0.7 Aspartate Amino Transf (AST/SGOT) 67 H Alanine Aminotransferase (ALT/SGPT) 108 H Alkaline Phosphatase 93 Total Protein 7.6 Albumin 3.8 Globulin 3.80 H Albumin/Globulin Ratio 1.00 Medications Medications Current Medications Ondansetron HCl (Zofran Inj) 4 mg Q6H PRN IV NAUSEA AND/OR VOMITING; Start 06/05/17 at 20:30 Acetaminophen (Tylenol Tab) 650 mg Q6H PRN PO PAIN LEVEL 1-3 OR FEVER Last administered on 06/06/17 08:42; Admin Dose 650 MG; Start 06/05/17 at 20:30 Acetaminophen/ Hydrocodone Bitart ([place] (5/325)) 2 tab Q6H PRN PO SEVERE PAIN LEVEL 7-10 Last administered on 06/08/17 06:18; Admin Dose 2 TAB; Start at 20:30 Famotidine (Pepcid) 20 mg Q12 PO Last administered on 06/08/17 08:18; Admin Dose 20 MG; Start 06/05/17 at 21:00 Enoxaparin Sodium 40 mg 40 mg DAILY SC Last administered on 06/08/17 08:23; Admin Dose 40 MG; Start 06/06/17 at 09:00 Vancomycin HCl/ Sodium Chloride (Vancocin/NS) 500 ml @ 125 mls/hr Q8H IVPB Last administered on 06/08/17 10:59; Admin Dose 125 MLS/HR; Start 06/06/17 at 10:00 BURKE OTT NP Jun 08, 2017 13:33
--- NOTE | 2017-06-08 13:43 | PN ---
Date/Time of Note Date/Time of Note DATE: 06/08/17 TIME: 13:41 Assessment/Plan VTE Prophylaxis VTE Prophylaxis Intervention: LMWH Lines/Catheters [facility] Saline Lock Urinary Cath still in place: No Assessment/Plan Assessment/Plan 1. Right lower extremity cellulitis. US Negative for DVT. -Continue IV antibiotics, elevation of affected extremity. pt still has significant right LE cellutlitis, WBC improving -Follow up with blood cultures. 2. Systemic inflammatory response syndrome secondary to #1. -Treatment as above. 3. Mild thrombocytopenia, stable. -Monitor 4. Anemia, likely dilutional vs others. -H&H stable. Will monitor. -Add iron panel and treat accordingly. 5. Hyperbilirubinemia/transaminase elevation. This could be likely fatty infiltration. Patient asymptomatic. -Obtain liver ultrasound. 6. Mild hypokalemia. -Replete and monitor. Obtain magnesium level. DVT and GI prophylaxis: Lovenox, acid gabriel Subjective 24 Hr Interval Summary Free Text/Dictation cellulitis improving still c/o signficant pain with examination of leg , Afebrile, WBC imrpoving Exam/Review of Systems Vital Signs Vitals Vital Signs Date Time Temp Pulse Resp B/P Pulse Ox O2 Delivery O2 Flow Rate FiO2 06/08/17 08:47 98.7 86 18 127/67 100 06/05/17 22:05 Room Air Intake and Output 06/07/17 06/07/17 06/08/17 15:00 23:00 07:00 Intake Total 500 ml 1600 ml 2100 ml Balance 500 ml 1600 ml 2100 ml Exam Constitutional: alert Psych: no complaints Head: normocephalic Eyes: nl conjunctiva ENMT: nl external ears & nose Neck: non-tender, supple Respiratory: clear to auscultation, normal air movement Cardiovascular: nl pulses, regular rate and rhythm Gastrointestinal: non-tender, soft Musculoskeletal: muscle weakness, other (Right leg swelling ), swelling Neurological: MANAGER OF RECRUITING II-XII intact, nl mental status, nl speech, nl strength Results Result Diagram: 06/08/17 0439 06/08/17 0439 Results 24 hrs Laboratory Tests Test 06/08/17 04:39 White Blood Count 8.0 # Red Blood Count 5.02 Hemoglobin 12.1 L Hematocrit 38.6 L Mean Corpuscular Volume 76.9 L Mean Corpuscular Hemoglobin 24.1 L Mean Corpuscular Hemoglobin Concent 31.3 L Red Cell Distribution Width 16.2 H Platelet Count 175 Mean Platelet Volume 13.1 H Neutrophils % 60.9 Lymphocytes % 23.3 Monocytes % 11.2 H Eosinophils % 3.7 Basophils % 0.5 Nucleated Red Blood Cells % 0.0 Neutrophils # 4.9 Lymphocytes # 1.9 Monocytes # 0.9 Eosinophils # 0.3 Basophils # 0.0 Nucleated Red Blood Cells # 0.0 Prothrombin Time 13.4 Prothrombin Time Ratio 1.0 INR International Normalized Ratio 1.02 Activated Partial Thromboplast Time 36.3 H Sodium Level 140 Potassium Level 4.1 Chloride Level 104 Carbon Dioxide Level 28 Anion Gap 12 Blood Urea Nitrogen 9 Creatinine 0.83 Glucose Level 97 Calcium Level 8.4 Total Bilirubin 0.7 Direct Bilirubin 0.00 Indirect Bilirubin 0.7 Aspartate Amino Transf (AST/SGOT) 67 H Alanine Aminotransferase (ALT/SGPT) 108 H Alkaline Phosphatase 93 Total Protein 7.6 Albumin 3.8 Globulin 3.80 H Albumin/Globulin Ratio 1.00 Medications Medications Current Medications Ondansetron HCl (Zofran Inj) 4 mg Q6H PRN IV NAUSEA AND/OR VOMITING; Start 06/05/17 at 20:30 Acetaminophen (Tylenol Tab) 650 mg Q6H PRN PO PAIN LEVEL 1-3 OR FEVER Last administered on 06/06/17 08:42; Admin Dose 650 MG; Start 06/05/17 at 20:30 Acetaminophen/ Hydrocodone Bitart ([place] (5/325)) 2 tab Q6H PRN PO SEVERE PAIN LEVEL 7-10 Last administered on 06/08/17 06:18; Admin Dose 2 TAB; Start at 20:30 Famotidine (Pepcid) 20 mg Q12 PO Last administered on 06/08/17 08:18; Admin Dose 20 MG; Start 06/05/17 at 21:00 Enoxaparin Sodium 40 mg 40 mg DAILY SC Last administered on 06/08/17 08:23; Admin Dose 40 MG; Start 06/06/17 at 09:00 Vancomycin HCl 2 gm/Sodium Chloride 500 ml @ 125 mls/hr Q8H IVPB Last administered on 06/08/17 10:59; Admin Dose 125 MLS/HR; Start 06/06/17 at 10:00 Ceftriaxone Sodium (Rocephin) 50 ml @ 100 mls/hr Q24H IVPB ; Start 06/08/17 at 14:00 JEREMY MONROY MD Jun 08, 2017 13:43
[2017-06-08 14:01] VITALS: BP 122/65; RESP 21
[2017-06-08] MEDS: CEFTRIAXONE 1 GM/50 ML (PMX) 50 ML IVPB SCH (15:27)
[2017-06-08 20:58] VITALS: BP 132/62; RESP 20
[2017-06-09 02:00] VITALS: BP 123/67; RESP 19
[2017-06-09] MEDS: VANCOMYCIN 2 GM in SOD CHLORIDE 0.9% 500 ML IVPB SCH ×2 (02:30→10:26)
[2017-06-09 08:00] VITALS: BP 131/65; RESP 18
[2017-06-09] MEDS: FAMOTIDINE 20 MG TAB PO SCH (09:25)
[2017-06-09] MEDS: ENOXAPARIN 40 MG/0.4 ML SYG SC SCH (09:30)
--- NOTE | 2017-06-09 10:47 | PN ---
Date/Time of Note Date/Time of Note DATE: 06/09/17 TIME: 10:46 Assessment/Plan VTE Prophylaxis VTE Prophylaxis Intervention: LMWH, SCD's Lines/Catheters IV Catheter Type (from [facility]rs[facility]): Saline Lock Urinary Cath still in place: No Assessment/Plan Assessment/Plan 1. Right lower extremity cellulitis. US Negative for DVT. -Continue IV antibiotics, elevation of affected extremity. pt still has significant right LE cellutlitis, WBC improving -Follow up with blood cultures. 2. Systemic inflammatory response syndrome secondary to #1. -Treatment as above. 3. Mild thrombocytopenia, stable. -Monitor 4. Anemia, likely dilutional vs others. -H&H stable. Will monitor. -Add iron panel and treat accordingly. 5. Hyperbilirubinemia/transaminase elevation. This could be likely fatty infiltration. Patient asymptomatic. -Obtain liver ultrasound. 6. Mild hypokalemia. -Replete and monitor. Obtain magnesium level. DVT and GI prophylaxis: Lovenox, acid gabriel Subjective 24 Hr Interval Summary Free Text/Dictation no acute events, BP stable Exam/Review of Systems Vital Signs Vitals Vital Signs Date Time Temp Pulse Resp B/P Pulse Ox O2 Delivery O2 Flow Rate FiO2 06/09/17 08:00 98.3 77 18 131/65 97 06/05/17 22:05 Room Air Intake and Output 06/08/17 06/08/17 06/09/17 15:00 23:00 07:00 Intake Total 500 ml 1630 ml 1475 ml Balance 500 ml 1630 ml 1475 ml Exam Constitutional: alert Respiratory: clear to auscultation, normal air movement Cardiovascular: nl pulses, regular rate and rhythm Gastrointestinal: non-tender, soft Musculoskeletal: muscle weakness, other (Right leg swelling ), swelling Neurological: PHILOSOPHY FACULTY MEMBER II-XII intact, nl mental status, nl speech, nl strength Results Result Diagram: 06/08/179 06/08/17438 Medications Medications Current Medications Ondansetron HCl (Zofran Inj) 4 mg Q6H PRN IV NAUSEA AND/OR VOMITING; Start 06/05/17 at 20:30 Acetaminophen (Tylenol Tab) 650 mg Q6H PRN PO PAIN LEVEL 1-3 OR FEVER Last administered on 06/06/17 08:42; Admin Dose 650 MG; Start 06/05/17 at 20:30 Acetaminophen/ Hydrocodone Bitart ([place] (5/325)) 2 tab Q6H PRN PO SEVERE PAIN LEVEL 7-10 Last administered on 06/08/17 06:18; Admin Dose 2 TAB; Start at 20:30 Famotidine (Pepcid) 20 mg Q12 PO Last administered on 06/09/17 09:25; Admin Dose 20 MG; Start 06/05/17 at 21:00 Enoxaparin Sodium 40 mg 40 mg DAILY SC Last administered on 06/09/17 09:30; Admin Dose 40 MG; Start 06/06/17 at 09:00 Vancomycin HCl 2 gm/Sodium Chloride 500 ml @ 125 mls/hr Q8H IVPB Last administered on 06/09/17 10:26; Admin Dose 125 MLS/HR; Start 06/06/17 at 10:00 Ceftriaxone Sodium (Rocephin) 50 ml @ 100 mls/hr Q24H IVPB Last administered on 06/08/17 15:27; Admin Dose 100 MLS/HR; Start 06/08/17 at 14:00 Miscellaneous Information (*Rx Drug Level Order Reminder*) VANCOMYCIN TROUGH AT 1700 ONCE ONCE XX ; Start 06/09/17 at 17:00; Stop 06/09/17 at 17:01 JEREMY MONROY MD Jun 09, 2017 10:47
--- NOTE | 2017-06-09 10:54 | PDOCDIS ---
Discharge Instructions CONDITION Patient Condition: Good HOME CARE INSTRUCTIONS: Diet Instructions: Regular ACTIVITY: Activity Restrictions: Slowly Increase Activity Rest between Activity Avoid heavy lifting Avoid Heavy Housework FOLLOW UP/APPOINTMENTS Follow-up Plan Follow up with his own PMD through HMO Insurance in 1-2 week after discharge JEREMY MONROY MD Jun 09, 2017 10:53
[2017-06-09] MEDS ORDERED: SULF1TAB31 PO (10:56)
[2017-06-09] MEDS ORDERED: IBUP400T22 PO (10:56)
[2017-06-09 14:00] VITALS: BP 139/65; RESP 18
[2017-06-09] MEDS: CEFTRIAXONE 1 GM/50 ML (PMX) 50 ML IVPB SCH (15:18)
--- NOTE | 2017-06-09 17:38 | DS ---
Date/Time of Note Date/Time of Note DATE: 06/09/17 TIME: 17:38 Discharge Summary Admission/Discharge Info Admit Date/Time Jun 05, 2017 at 20:18 Discharge Date/Time Jun 09, 2017 at 16:55 Discharge Diagnosis 1. Right lower extremity cellulitis. US Negative for DVT. 2. Systemic inflammatory response syndrome secondary to #1. 3. Mild thrombocytopenia, stable. 4. Anemia of chronic disease. 5. acute asymptomatic transaminitis due to fatty liver 6. Mild hypokalemia. Patient Condition: Good Consults Infectious disease Consult Procedures US lower extremity negative for DVT Hx of Present Illness 26-year-old male coming into the ED complaining of right lower extremity calf pain and rash. Patient states he started noticing a rash of the back side of his leg below the level of the knee on Saturday. He states that it was painful and warm to touch. He denies any fevers. Denies any recent travel. He does state that he was scratching the area because it was itchy. He was not taking any medications for this He gets admitted for SIRS due to LE cellulitis and ID was consulted on the case. Hospital Course pt gets admitted for SIRS due to LE celluliits, His LE Doppler US negative.ID was consulted on the case. BP remained stable he was treated with iV abx Vancomycin and his WBC Count improved to normal. He was discharged with PO bactrimn for LE cellulitis to cover MRSA. Home Meds Active Scripts Ibuprofen* (Ibuprofen*) 400 Mg Tablet, 400 MG PO Q6H Y for PAIN, #40 TAB Prov:JEREMY MONROY MD 06/09/17 Sulfamethoxazole/Trimethoprim* (Bactrim Ds* Tablet) 1 Each Tablet, 1 TAB PO BID for Celluliits , #16 TAB Prov:JEREMY MONROY MD 06/09/17 Discontinued Scripts Ibuprofen* (Ibuprofen*) 600 Mg Tablet, 600 MG PO Q8 for PAIN AND/OR INFLAMMATION , #30 TAB Prov:SINGH LEE MD 10/08/16 Sulfamethoxazole-Trimethoprim* (Bactrim* DS) 800-160 Mg Tab, 1 TAB PO BID for 7 Days, TAB Prov:SINGH LEE MD 10/08/16 Cephalexin* (Keflex*) 500 Mg Capsule, 500 MG PO QID for 7 Days, CAP Prov:SINGH LEE MD 10/08/16 Follow-up Plan Follow up with his own PMD through HMO Insurance in 1-2 week after discharge Primary Care Provider [facility] JEREMY Burgos MD Jun 09, 2017 17:38 Ibuprofen* (Ibuprofen*) 600 Mg Tablet, 600 MG PO Q8 for PAIN AND/OR INFLAMMATION , #30 TAB Prov:SINGH LEE MD 10/08/16 Sulfamethoxazole-Trimethoprim* (Bactrim* DS) 800-160 Mg Tab, 1 TAB PO BID for 7 Days, TAB Prov:SINGH LEE MD 10/08/16 Cephalexin* (Keflex*) 500 Mg Capsule, 500 MG PO QID for 7 Days, CAP Prov:SINGH LEE MD 10/08/16 Follow-up Plan Follow up with his own PMD through HMO Insurance in 1-2 week after discharge Primary Care Provider [facility] JEREMY Burgos MD Jun 09, 2017 17:38
== END 2017-06-09 16:55 | disposition home or self-care (01) | DRG 603 ==
LOC: FTE 15:00 → MS1 20:18
PROVIDERS: ADMIT Family Medicine; ATTEND Family Medicine
DX: L03.115 Cellulitis of right lower limb (principal); D69.6 Thrombocytopenia, unspecified; Z68.43 Body mass index [BMI] 50.0-59.9, adult; E66.01 Morbid (severe) obesity due to excess calories; D64.9 Anemia, unspecified; E87.6 Hypokalemia; E80.6 Other disorders of bilirubin metabolism; R74.0 Nonspecific elevation of levels of transaminase and lactic acid dehydrogenase [LDH]
CPT/HCPCS: 36415; 73590; 76536; 76705; 80048; 80053; 80061; 80202; 81001; 83036; 83605; 83690; 83735; 84443; 85025; 85610; 85730; 86704; 86709; 86803; 87040; 87340; 93971; 96374; J0696; J1650; J3370; J7030; J7040; J7050

== ENCOUNTER 2018-04-24 01:13 | Emergency (ER) | END 2018-04-24 04:15 | disposition home or self-care (01) ==